=== PATIENT | male | born 1975 | race Caucasian/White ===

== ENCOUNTER 2016-10-19 18:24 | Emergency (ER) | payer SELFPAY | END 2016-10-19 19:12 | disposition home or self-care (01) | LOC: ER 18:24 | DX: S81.811A Laceration without foreign body, right lower leg, initial encounter (principal); W26.0XXA Contact with knife, initial encounter; Y92.000 Kitchen of unspecified non-institutional (private) residence as the place of occurrence of the external cause | CPT/HCPCS: 12002; 99070; 99283; 99283-25 ==